=== PATIENT | male | born 1995 | race African-American/Black ===

== ENCOUNTER 2020-03-16 04:17 | Emergency (ER) | payer OTHER ==
[~2020-03-16] VITALS: Ht 175.3 cm; Wt 69.0 kg
[2020-03-16] MEDS ORDERED: VALA500T4 PO (04:33)
--- NOTE | 2020-03-16 04:34 | NUR ---
Transferred from [facility].[id number] was driving and felt tingling on right side of face and arm after lifting weights. Now has full strength, no complaints reports that he is here to get a MRI and a Neuro consult.
--- NOTE | 2020-03-16 05:42 | NUR ---
Pt resting, resp even and unlabored. Pillow provided and lights dimmed. No complaints at this time.
--- NOTE | 2020-03-16 06:04 | NUR ---
MRI Safety screening faxed
--- NOTE | 2020-03-16 07:00 | NUR ---
Report from Lisa grant
[2020-03-16 07:10] VITALS: BP 115/59
--- NOTE | 2020-03-16 07:45 | NUR ---
pt to mri
[2020-03-16] MEDS ORDERED: GADOTERATE 7.5 MMOL/15 ML SYR ONE (07:56)
--- NOTE | 2020-03-16 08:38 | NUR ---
ERMD AT BEDSIDE TO DISCUSS POC. DISCHARGE INSTRUCTIONS REVIEWED.
== END 2020-03-16 08:56 | disposition home or self-care (01) ==
LOC: ED 05:32
DX: R20.2 Paresthesia of skin (principal); R53.1 Weakness
CPT/HCPCS: 70553; 99285; A9575